=== PATIENT | female | born 1995 | race African-American/Black ===

== ENCOUNTER 2022-12-24 22:19 | Emergency (ER) | payer MEDICAID ==
[~2022-12-24] VITALS: Ht 157.5 cm; Wt 66.0 kg
[2022-12-25] MEDS ORDERED: IBUPROFEN 600 MG TABLET PO ONE (01:45)
[2022-12-25 02:09] VITALS: BP 127/77; PULSE 89; RESP 16; TEMP 97.3
== END 2022-12-25 04:27 | disposition home or self-care (01) ==
LOC: EMS 22:22
DX: S93.402A Sprain of unspecified ligament of left ankle, initial encounter (principal); V89.2XXA Person injured in unspecified motor-vehicle accident, traffic, initial encounter; Y93.89 Activity, other specified; Y92.89 Other specified places as the place of occurrence of the external cause; Y99.8 Other external cause status
CPT/HCPCS: 99283